=== PATIENT | female | born 1970 | race Caucasian/White ===

== ENCOUNTER 2018-08-21 09:04 | Emergency (ER) | payer OTHER ==
[~2018-08-21] VITALS: Ht 170.2 cm; Wt 77.1 kg
[~2018-08-21 09:04] MED LIST: KEFLEX500 M1 PO; MICROGESTIN1 EAC1
[2018-08-21] MEDS ORDERED: ASPIR 8181 MG PO (09:12)
[2018-08-21] MEDS ORDERED: NORCO 5-325 TA1 EACH PO (09:50)
[2018-08-21 10:35] VITALS: BP 132/70
== END 2018-08-21 10:36 | disposition home or self-care (01) ==
LOC: ER 09:04
DX: S20.211A Contusion of right front wall of thorax, initial encounter (principal); S60.221A Contusion of right hand, initial encounter; V89.0XXA Person injured in unspecified motor-vehicle accident, nontraffic, initial encounter; Y93.89 Activity, other specified; Y92.89 Other specified places as the place of occurrence of the external cause; Y99.8 Other external cause status